=== PATIENT | male | born 1995 | race Caucasian/White ===

== ENCOUNTER 2017-08-09 14:59 | Emergency (ER) | payer OTHER ==
[2017-08-09] MEDS ORDERED: Clindamycin 600 MG IVPREMIX(* 600 MG/50 ML SDV IV ONE (17:19)
[2017-08-09] MEDS ORDERED: NS 0.9% 1000 ML* 1,000 ML IV ONE (17:19)
[2017-08-09] MEDS ORDERED: methylPREDNISolone 125 MG* 2 ML VIAL IV ONE (17:20)
[2017-08-09 17:52] LABS: Hematocrit 36 % (42-52); Hemoglobin 12.4 g/dl (14.0-18.0); Mean Corpuscular HGB Conc 34 g/dl (31-36); Mean Corpuscular Hemoglobin 32 pg (27-31); Mean Corpuscular Volume 94 fL (80-94); Mean Platelet Volume 9 um3 (7.4-10.4); Red Blood Count 3.86 10^6/ul (4.0-5.4); Red Cell Distribution Width 12 % (10.5-15); White Blood Count 12.1 10^3/ul (3.5-10.8)
[2017-08-09 18:02] LABS: Albumin 4.2 g/dL (3.2-5.2); BUN/Creatinine Ratio 8.8 (8-20); Calcium 9.3 mg/dL (8.6-10.3); EGFR African American 118.6 (>60); EGFR Non-African American 92.2 (>60); Globulin 3.5 g/dL (2-4); Potassium 3.2 mmol/L (3.5-5.0); Total Bilirubin 1.1 mg/dL (0.2-1.0); Total Protein 7.7 g/dL (6.4-8.9)
[2017-08-09 18:14] LABS: Mono Internal Control QC Line Present
[2017-08-09] MEDS ORDERED: Ketorolac INJ* 30 MG/ML 1 ML VIAL IV PUSH ONE (19:04)
--- NOTE | 2017-08-09 19:05 | ED ---
Throat Pain/Nasal Congestion - HPI Summary HPI Summary: Pt here w/ throat pain, swelling and dysphagia x 1 week. Initially started as ST - was seen at outpt clinic and rapid strep was negative. He is here today as throat is getting more swollen. He is able to sip water but barely. Managing secretions. Has had fevers on/off over the week. Has mild nasal congestion but denies otalgia, cough, chest pain, ab pain, N/V/D. Has not been able to eat in 3 days. No h/o strep or mono. He is a college student - parents and a few friends from school know he's here. - History of Current Complaint Chief Complaint: EDThroatPain Time Seen by Provider: 08/09/17 16:12 Hx Obtained From: Patient - Allergies/Home Medications Allergies/Adverse Reactions: Allergies Allergy/AdvReac Type Severity Reaction Status Date / Time No Known Allergies Allergy Verified 08/09/17 15:10 PMH/Surg Hx/FS Hx/Imm Hx Previously Healthy: Yes Endocrine/Hematology History: Denies: Hx Anticoagulant Therapy, Hx Blood Disorders, Autoimmune Disease Respiratory History: Denies: Hx Asthma - Immunization History Immunizations Up to Date: Yes Infectious Disease History: Yes Infectious Disease History: Denies: Traveled Outside the [place] in Last 30 Days - Family History Known Family History: Positive: None - Social History Occupation: Student Lives: Dormitory/Roommates Alcohol Use: Weekly Hx Substance Use: No Substance Use Type: Reports: None Hx Tobacco Use: No Smoking Status (MU): Never Smoked Tobacco Review of Systems Positive: Fever Eyes: Negative Negative: Photophobia, Blurred Vision, Diplopia, Drainage, Erythema Positive: Sore Throat, Nasal Discharge. Negative: Epistaxis, Dental Pain, Ear Ache Cardiovascular: Negative Negative: Palpitations, Chest Pain Respiratory: Negative Negative: Shortness Of Breath, Cough Gastrointestinal: Negative Negative: Abdominal Pain, Vomiting, Diarrhea, Nausea Positive: no symptoms reported Musculoskeletal: Negative Negative: Arthralgia, Myalgia Skin: Negative Negative: Rash Neurological: Negative Psychological: Normal All Other Systems Reviewed And Are Negative: Yes Physical Exam Triage Information Reviewed: Yes Vital Signs On Initial Exam: Initial Vitals Temp Pulse Resp BP Pulse Ox 99.0 F 90 16 114/66 99 08/09/17 15:10 08/09/17 15:10 08/09/17 15:10 08/09/17 15:10 08/09/17 15:10 Vital Signs Reviewed: Yes Appearance: Positive: Well-Nourished, Ill-Appearing - Pt w/ mild generalized pallor, appears mildly fatigued but in good spirits - speaking in full sentences - voice is muffled somewhat - handling secretions well, Pain Distress Skin: Positive: Warm, Dry - no rash Head/Face: Positive: Normal Head/Face Inspection - sinuses NTTP Eyes: Positive: Normal, EOMI, Conjunctiva Clear. Negative: Conjunctiva Inflammed, Discharge ENT: Positive: Hearing grossly normal, Pharyngeal erythema, Nasal congestion, TMs normal, Tonsillar swelling - +3-4, Tonsillar exudate, Muffled voice, Uvula midline. Negative: Nasal drainage, Trismus Neck: Positive: Supple, Tenderness @ - submandibular B/L - mild Respiratory/Lung Sounds: Positive: Clear to Auscultation, Breath Sounds Present. Negative: Rales, Rhonchi, Stridor, Wheezes Cardiovascular: Positive: Normal, RRR, S1, S2. Negative: Murmur, Rub Abdomen Description: Positive: No Organomegaly, Soft, Other: - mild RUQ TTP - no rebounding. Negative: Splenomegaly - LUQ NTTP Diagnostics - Vital Signs Vital Signs Temp Pulse Resp BP Pulse Ox 08/09/17 15:10 99.0 F 90 16 114/66 99 - Laboratory Lab Results: Lab Results 08/09/17 08/09/17 08/09/17 Range/Units 17:30 17:30 17:30 WBC 12.1 H (3.5-10.8) 10^3/ul RBC 3.86 L (4.0-5.4) 10^6/ul Hgb 12.4 L (14.0-18.0) g/dl Hct 36 L (42-52) % MCV 94 (80-94) fL MCH 32 H (27-31) pg MCHC 34 (31-36) g/dl RDW 12 (10.5-15) % Plt Count 190 (150-450) 10^3/ul MPV 9 (7.4-10.4) um3 Neut % (Auto) 53.7 (38-83) % Lymph % (Auto) 38.1 (25-47) % [place] % (Auto) 7.4 (1-9) % Eos % (Auto) 0.1 (0-6) % Baso % (Auto) 0.7 (0-2) % Absolute Neuts (auto) 6.5 (1.5-7.7) 10^3/ul Absolute Lymphs (auto) 4.6 (1.0-4.8) 10^3/ul Absolute Monos (auto) 0.9 H (0-0.8) 10^3/ul Absolute Eos (auto) 0 (0-0.6) 10^3/ul Absolute Basos (auto) 0.1 (0-0.2) 10^3/ul Absolute Nucleated RBC 0.02 10^3/ul Nucleated RBC % 0.1 Sodium 137 (133-145) mmol/L Potassium 3.2 L (3.5-5.0) mmol/L Chloride 100 L (101-111) mmol/L Carbon Dioxide 27 (22-32) mmol/L Anion Gap 10 (2-11) mmol/L BUN 9 (6-24) mg/dL Creatinine 1.02 (0.67-1.17) mg/dL Est GFR ( Amer) 118.6 (>60) Est GFR (Non-Af Amer) 92.2 (>60) BUN/Creatinine Ratio 8.8 (8-20) Glucose 111 H (70-100) mg/dL Lactic Acid 1.0 (0.5-2.0) mmol/L Calcium 9.3 (8.6-10.3) mg/dL Total Bilirubin 1.10 H (0.2-1.0) mg/dL AST 53 H (13-39) U/L ALT 95 H (7-52) U/L Alkaline Phosphatase 81 (34-104) U/L Total Protein 7.7 (6.4-8.9) g/dL Albumin 4.2 (3.2-5.2) g/dL Globulin 3.5 (2-4) g/dL Albumin/Globulin Ratio 1.2 (1-3) Monoscreen Positive H (Negative) Result Diagrams: 08/09/17 17:30 12 17:30 Lab Statement: Any lab studies that have been ordered have been reviewed, and results considered in the medical decision making process. EENT Course/Dx - Course Course Of Treatment: Pt presents w/ tonsilitis and dysphagia. He was given IVF, toradol, solumedrol and clindamycin. CBC reveals elevated WBC's w/o left shift and Rapid strep neg, mono +. LFT's and platelets WNL. Pt is pending completion of meds through IV and update on sx (ie. ability to tolerate PO) prior to d/c. Signed out to Kerry Burgos PA-C. - Diagnoses Provider Diagnoses: Acute tonsillitis due to infectious mononucleosis Discharge - Discharge Plan Condition: Stable Disposition: HOME Prescriptions: Ibuprofen ADULT LIQ* [Motrin LIQ ADULT*] 600 mg PO TID #1 udc predniSONE TAB* [Deltasone TAB*] 50 mg PO DAILY #5 tab Patient Education Materials: Mononucleosis (ED), Tonsillitis (ED) Forms: *School Release Referrals: [facility] - Pascual MCCORMICK [Primary Care Provider] - Additional Instructions: Please follow up with [facility] Begin Prednisone 50mg once daily in the morning x 5 days Ibuprofen 600mg three times daily for 5 days If you develop any difficulty breathing, worsening difficulty with swallowing - please come back to the ED immediately. Rest Fluids Cold foods/drink
--- NOTE | 2017-08-09 19:27 | PN ---
Progress Note - Progress Note Date of Service: 08/09/17 Note: Signed out from KENNEDI Bergman at 7pm. Note from KENNEDI Bergman Pt here w/ throat pain, swelling and dysphagia x 1 week. Initially started as ST - was seen at outpt clinic and rapid strep was negative. He is here today as throat is getting more swollen. He is able to sip water but barely. Managing secretions. Has had fevers on/off over the week. Has mild nasal congestion but denies otalgia, cough, chest pain, ab pain, N/V/D. Has not been able to eat in 3 days. No h/o strep or mono. He is a college student - parents and a few friends from school know he's here. Evaluated by myself. ROS: Constitutional: The patient denies fever, CAR[place]O. Endorses fatigue. HEENT: Head: The patient denies headaches or dizziness. Throat: The patient endorses sore throat, hoarseness, odynophagia and dysphagia. Cardiovascular: The patient denies chest pain, palpitations, syncope, night cramps, or orthostasis. Respiratory: The patient denies cough, sputum production, hemoptysis, dyspnea, wheezing. Gastrointestinal: The patient denies odynophagia, dysphagia, hematemesis, melenemesis. Denies abdominal pain, nausea or vomiting. Denies constipation or diarrhea. Muscles: The patient denies myalgia, strain or weakness. Joints: The patient denies arthralgia and/or arthritis. Neurologic: The patient denies headache, loss of consciousness, or seizure. Dermatologic: The patient denies rashes. Physical Exam: Appearance: WDW, comfortable, pleasant, alert Skin: Soft dry skin, no lesions. Nailbeds pink with no cyanosis or clubbing. No petechia noted. Eyes: DAREK, EOMI, Conjunctiva pink with no redness or exudates. Mouth: Dentition without lesions. Moist mucosa. Enlarged tonsils +3-+4 bilaterally. Managing secretions. Midline Uvula. Neck: Full range of motion. Palpable thyroid. Trachea at midline. Cervical LAD/ Anterior LAD Pulm: Chest symmetrical expansion. No deformities on posterior chest wall. Lungs clear to auscultation and percussion, without adventitious sounds. CV: No JVD. No deformities on anterior chest wall. Heart soundsRRR, Normal S1 and single S2. No S3, S4, rubs, or murmurs. Carotids 2+ bilaterally without bruits. . Musculoskeletal: Flexion and extension of neck without limitations. ROM WNL in all extremities. No deformities noted. Pulses full and equal. Neuro: Motor strength is 5/5 in upper and lower extremities bilaterally. A&OX3 Psych: Logical, coherent Denies allergies or other health concerns. Prescriptions sent for ibuprofen liquid 30ml three times per day Prednisone 50mg once per day in the morning Patient encouraged to return for worsening symptoms. Spoke with patients mother at 7:45p who agrees with plan of steroids and ibuprofen. Note given for school Patient discharged; Condition: Stable Disposition: Home
[2017-08-09 20:27] VITALS: BP 123/85
[2017-08-12 12:10] LABS: EBV Capsid Ag IgG Ab Negative (Negative); EBV Capsid Ag IgM Ab Positive (Negative)
== END 2017-08-09 20:26 | disposition home or self-care (01) ==
LOC: ED 14:59
DX: B27.90 Infectious mononucleosis, unspecified without complication (principal); J03.90 Acute tonsillitis, unspecified; J02.9 Acute pharyngitis, unspecified; R13.10 Dysphagia, unspecified
CPT/HCPCS: 36415; 80053; 83605; 85025; 86308; 86644; 86645; 86664; 86665; 96374; 96375; 99283; J1885; J2930